=== PATIENT | male | born 1950 | race Caucasian/White ===

== ENCOUNTER 2016-05-25 00:21 | Emergency (ER) | payer OTHER ==
[2016-05-25 01:40] LABS: UA SPECIFIC GRAVITY 1.025 (1.005-1.035); microscopic required? YES; urine erythrocyte 3+ (NEGATIVE)
[2016-05-25 02:28] VITALS: BP 159/97
== END 2016-05-25 02:28 | disposition home or self-care (01) ==
LOC: ED 00:21
PROVIDERS: Emergency Medicine
DX: N39.0 Urinary tract infection, site not specified (principal); N40.1 Benign prostatic hyperplasia with lower urinary tract symptoms; R33.8 Other retention of urine

== ENCOUNTER 2016-07-02 00:44 | Emergency (ER) | payer OTHER ==
[2016-07-02 03:41] VITALS: BP 130/89
== END 2016-07-02 03:41 | disposition home or self-care (01) ==
LOC: ED 00:44
DX: N40.1 Benign prostatic hyperplasia with lower urinary tract symptoms (principal); N39.0 Urinary tract infection, site not specified
CPT/HCPCS: 76770; Q0092

== ENCOUNTER 2016-07-10 00:56 | Emergency (ER) | payer OTHER ==
[2016-07-10 03:44] VITALS: BP 150/96
== END 2016-07-10 03:44 | disposition home or self-care (01) ==
LOC: ED 00:56
DX: Z46.6 Encounter for fitting and adjustment of urinary device (principal)

== ENCOUNTER 2016-07-14 14:37 | Emergency (ER) | payer OTHER ==
[2016-07-14 15:00] VITALS: BP 165/152
== END 2016-07-14 16:01 | disposition home or self-care (01) ==
LOC: ED 14:37
DX: Z46.6 Encounter for fitting and adjustment of urinary device (principal)

== ENCOUNTER 2016-10-04 16:34 | Emergency (ER) | payer OTHER ==
[~2016-10-04] VITALS: Ht 180.3 cm; Wt 100.0 kg
[2016-10-04 18:35] LABS: BASOPHIL % 0.5 % (0-2); PLATELET COUNT 289 x10^3mcL (130-400); RED CELL DISTRIBUTION WIDTH 13.9 % (11.5-14.5)
[2016-10-04 18:39] LABS: CALCIUM 9.5 mg/dL (8.5-10.1); CARBON DIOXIDE 22.9 mmol/L (21-32); CHLORIDE SERUM 103 mmol/L (98-107); CREATININE SERUM 1.1 mg/dL (0.7-1.3); GFR1 > 60 mL/min; GLUCOSE SERUM 101 mg/dL (74-106); POTASSIUM SERUM 3.8 mmol/L (3.5-5.1); SODIUM SERUM 136 mmol/L (136-145)
[2016-10-04 19:53] LABS: microscopic required? YES; urine erythrocyte 3+ (NEGATIVE)
[2016-10-04 20:15] VITALS: BP 156/101
== END 2016-10-04 20:15 | disposition home or self-care (01) ==
LOC: ED 16:34
PROVIDERS: Emergency Medicine
DX: N40.1 Benign prostatic hyperplasia with lower urinary tract symptoms (principal); R33.8 Other retention of urine; R03.0 Elevated blood-pressure reading, without diagnosis of hypertension
CPT/HCPCS: 36415; 76770; Q0092

== ENCOUNTER 2017-01-08 10:35 | Inpatient (IN) | payer OTHER ==
[~2017-01-08] VITALS: Ht 182.9 cm; Wt 93.9 kg
[2017-01-08 12:25] LABS: BASOPHIL % 0.6 % (0-2); PLATELET COUNT 321 x10^3mcL (130-400); RED CELL DISTRIBUTION WIDTH 13.7 % (11.5-14.5)
[2017-01-08 12:30] LABS: CALCIUM 9.4 mg/dL (8.5-10.1); CARBON DIOXIDE 26.9 mmol/L (21-32); CHLORIDE SERUM 101 mmol/L (98-107); CREATININE SERUM 0.9 mg/dL (0.7-1.3); GFR1 > 60 mL/min; GLUCOSE SERUM 92 mg/dL (74-106); POTASSIUM SERUM 3.5 mmol/L (3.5-5.1); SODIUM SERUM 137 mmol/L (136-145)
[2017-01-08 12:34] LABS: ALBUMIN 3.6 g/dL (3.4-5.0); ALKALINE PHOSPHATASE 100 U/L (46-116); ALT/SGPT 20 U/L (16-63); AMYLASE 28 U/L (25-115); AST/SGOT 16 U/L (15-37); BILIRUBIN TOTAL 0.53 mg/dL (0.20-1.00); LIPASE 162 IU/L (73-393)
[2017-01-08 12:37] LABS: TOTAL PROTEIN, SERUM 8.4 g/dL (6.4-8.2)
[2017-01-08 14:23] LABS: PHOSPHOROUS 2.4 mg/dL (2.5-4.9)
[2017-01-08 14:25] LABS: CHOLESTEROL/HDL RATIO 3.9
[2017-01-08 14:30] LABS: T3 TOTAL 1.14 ng/mL
[2017-01-08 14:32] LABS: FREE T4 1.3 ng/dL (0.76-1.46); FREE THYROXINE INDEX 3.7 ug/dL (1.4-4.5); T4(THYROXINE) 10.9 ug/dL (4.7-13.3)
[2017-01-08 14:34] VITALS: BP 171/109
[2017-01-08 14:36] LABS: UA SPECIFIC GRAVITY <=1.005 (1.005-1.035); microscopic required? YES; urine erythrocyte NEGATIVE (NEGATIVE)
[2017-01-08 14:59] LABS: AMPHETAMINE QUAL UR NONE DETECTED (NEG <=1000)
[2017-01-08 17:27] VITALS: BP 171/107
[2017-01-08 20:31] VITALS: BP 134/68
[2017-01-09 05:51] VITALS: BP 125/74
[2017-01-09 06:09] LABS: BASOPHIL % 0.6 % (0-2); PLATELET COUNT 292 x10^3mcL (130-400); RED CELL DISTRIBUTION WIDTH 14.1 % (11.5-14.5)
[2017-01-09 06:12] LABS: CALCIUM 8.4 mg/dL (8.5-10.1); CARBON DIOXIDE 24.5 mmol/L (21-32); CHLORIDE SERUM 106 mmol/L (98-107); CREATININE SERUM 0.9 mg/dL (0.7-1.3); GFR1 > 60 mL/min; GLUCOSE SERUM 83 mg/dL (74-106); MAGNESIUM 2.2 mg/dL (1.8-2.4); PHOSPHOROUS 3.5 mg/dL (2.5-4.9); POTASSIUM SERUM 3.5 mmol/L (3.5-5.1); SODIUM SERUM 138 mmol/L (136-145)
[2017-01-09 09:22] VITALS: BP 161/96
[2017-01-09 12:22] VITALS: BP 147/94
[2017-01-09 16:14] VITALS: BP 154/93
== END 2017-01-09 16:22 | disposition left against medical advice (07) | DRG 693 ==
LOC: ED 10:35 → DU 13:11
PROVIDERS: Specialist; ADMIT Family Medicine
DX: N21.0 Calculus in bladder (principal); N17.0 Acute kidney failure with tubular necrosis; N13.2 Hydronephrosis with renal and ureteral calculous obstruction; N39.0 Urinary tract infection, site not specified; I16.0 Hypertensive urgency; I10 Essential (primary) hypertension; E83.39 Other disorders of phosphorus metabolism; N40.0 Benign prostatic hyperplasia without lower urinary tract symptoms; E78.2 Mixed hyperlipidemia; Z91.19 Patient's noncompliance with other medical treatment and regimen; Z68.28 Body mass index [BMI] 28.0-28.9, adult
CPT/HCPCS: 76770; 83880; 84439; J0696; J1885; J2405; J3010; J7030; Q0092

== ENCOUNTER 2017-03-22 09:35 | Emergency (ER) | payer OTHER ==
[~2017-03-22] VITALS: Ht 182.9 cm; Wt 92.1 kg
[2017-03-22 12:00] VITALS: BP 142/88
== END 2017-03-22 12:00 | disposition home or self-care (01) ==
LOC: ED 09:35
DX: N39.0 Urinary tract infection, site not specified (principal); N40.0 Benign prostatic hyperplasia without lower urinary tract symptoms

== ENCOUNTER 2017-06-12 18:40 | Emergency (ER) | payer OTHER ==
[~2017-06-12] VITALS: Ht 170.2 cm; Wt 98.4 kg
[2017-06-12 19:16] VITALS: Ht 170.2 cm; Wt 98.4 kg
[2017-06-12 20:19] LABS: PLATELET COUNT 252 x10^3mcL (130-400); RED CELL DISTRIBUTION WIDTH 13.9 % (11.5-14.5)
[2017-06-12 20:39] LABS: CALCIUM 8.4 mg/dL (8.5-10.1); CHLORIDE SERUM 105 mmol/L (98-107); CREATININE SERUM 0.9 mg/dL (0.7-1.3); GFR1 > 60 mL/min; GLUCOSE SERUM 87 mg/dL (74-106); POTASSIUM SERUM 3.5 mmol/L (3.5-5.1); SODIUM SERUM 139 mmol/L (136-145)
[2017-06-12 20:44] LABS: ALBUMIN 3.5 g/dL (3.4-5.0); ALKALINE PHOSPHATASE 116 U/L (46-116); ALT/SGPT 16 U/L (16-63); AST/SGOT 15 U/L (15-37); BILIRUBIN TOTAL 0.4 mg/dL (0.20-1.00); TOTAL PROTEIN, SERUM 7.3 g/dL (6.4-8.2)
[2017-06-12 22:21] LABS: microscopic required? YES; urine erythrocyte 3+ (NEGATIVE)
[2017-06-12 23:03] VITALS: BP 130/79
== END 2017-06-12 23:03 | disposition home or self-care (01) ==
LOC: ED 18:40
PROVIDERS: Emergency Medicine
DX: N39.0 Urinary tract infection, site not specified (principal)
CPT/HCPCS: 36415

== ENCOUNTER 2017-09-04 16:44 | Emergency (ER) | payer OTHER ==
[~2017-09-04] VITALS: Ht 180.3 cm; Wt 97.1 kg
[2017-09-04 16:51] VITALS: Ht 180.3 cm; Wt 97.1 kg
[2017-09-04 20:11] LABS: microscopic required? YES; urine erythrocyte 3+ (NEGATIVE)
[2017-09-04 20:51] VITALS: BP 145/95
== END 2017-09-04 20:51 | disposition home or self-care (01) ==
LOC: ED 16:44
PROVIDERS: Emergency Medicine Emergency Medical Services
DX: T83.011A Breakdown (mechanical) of indwelling urethral catheter, initial encounter (principal); N40.0 Benign prostatic hyperplasia without lower urinary tract symptoms

== ENCOUNTER 2017-12-22 12:04 | Emergency (ER) | payer OTHER ==
[~2017-12-22] VITALS: Ht 182.9 cm; Wt 99.0 kg
[2017-12-22 12:13] VITALS: Ht 182.9 cm; Wt 99.0 kg
[2017-12-22 13:17] LABS: microscopic required? YES; urine erythrocyte TRACE (NEGATIVE)
[2017-12-22 14:14] VITALS: BP 155/104
== END 2017-12-22 14:14 | disposition home or self-care (01) ==
LOC: ED 12:04
PROVIDERS: Emergency Medicine
DX: N40.1 Benign prostatic hyperplasia with lower urinary tract symptoms (principal)

== ENCOUNTER 2018-05-08 02:31 | Emergency (ER) | payer OTHER ==
[~2018-05-08] VITALS: Ht 182.9 cm; Wt 91.6 kg
[2018-05-08 02:41] VITALS: Ht 182.9 cm; Wt 91.6 kg
[2018-05-08 05:18] VITALS: BP 146/97
== END 2018-05-08 05:18 | disposition home or self-care (01) ==
LOC: ED 02:31
DX: N39.0 Urinary tract infection, site not specified (principal); N48.1 Balanitis; R33.9 Retention of urine, unspecified
CPT/HCPCS: 82962

== ENCOUNTER 2018-05-13 03:22 | Emergency (ER) | payer OTHER ==
[~2018-05-13] VITALS: Ht 182.9 cm; Wt 90.3 kg
[2018-05-13 03:28] VITALS: Ht 182.9 cm; Wt 90.3 kg
[2018-05-13 05:15] VITALS: BP 150/84
== END 2018-05-13 05:15 | disposition home or self-care (01) ==
LOC: ED 03:22
DX: R33.9 Retention of urine, unspecified (principal)

== ENCOUNTER 2018-08-29 23:37 | Emergency (ER) | payer OTHER ==
[~2018-08-29] VITALS: Ht 172.7 cm; Wt 96.2 kg
[2018-08-29 23:39] VITALS: Ht 172.7 cm; Wt 96.2 kg
[2018-08-30 02:57] VITALS: BP 189/115
== END 2018-08-30 03:25 | disposition home or self-care (01) ==
LOC: ED 23:37
DX: T83.018A Breakdown (mechanical) of other urinary catheter, initial encounter (principal); N40.1 Benign prostatic hyperplasia with lower urinary tract symptoms

== ENCOUNTER 2018-09-19 21:50 | Emergency (ER) | payer OTHER ==
[~2018-09-19] VITALS: Ht 182.9 cm; Wt 97.1 kg
[2018-09-19 21:56] VITALS: Ht 182.9 cm; Wt 97.1 kg
[2018-09-20 01:34] VITALS: BP 163/89
== END 2018-09-20 01:34 | disposition home or self-care (01) ==
LOC: ED 21:50
DX: T83.018A Breakdown (mechanical) of other urinary catheter, initial encounter (principal)

== ENCOUNTER 2018-09-22 03:13 | Emergency (ER) | payer OTHER ==
[~2018-09-22] VITALS: Ht 182.9 cm; Wt 96.8 kg
[2018-09-22 03:24] VITALS: Ht 182.9 cm; Wt 96.8 kg
[2018-09-22 06:16] VITALS: BP 130/89
== END 2018-09-22 06:16 | disposition home or self-care (01) ==
LOC: ED 03:13
DX: T83.018A Breakdown (mechanical) of other urinary catheter, initial encounter (principal)

== ENCOUNTER 2018-11-14 19:07 | Emergency (ER) | payer OTHER ==
[~2018-11-14] VITALS: Ht 180.3 cm; Wt 95.7 kg
[2018-11-14 19:23] VITALS: Ht 180.3 cm; Wt 95.7 kg
[2018-11-14 20:48] VITALS: BP 142/92
== END 2018-11-14 20:48 | disposition home or self-care (01) ==
LOC: ED 19:07
DX: T83.9XXA Unspecified complication of genitourinary prosthetic device, implant and graft, initial encounter (principal); N39.0 Urinary tract infection, site not specified

== ENCOUNTER 2019-04-06 06:27 | Emergency (ER) | payer OTHER ==
[~2019-04-06] VITALS: Ht 182.9 cm; Wt 95.3 kg
[2019-04-06 06:39] VITALS: Ht 182.9 cm; Wt 95.3 kg
[2019-04-06 07:32] VITALS: BP 170/90
[2019-04-06 08:16] LABS: UA SPECIFIC GRAVITY 1.015 (1.005-1.035); microscopic required? YES; urine erythrocyte 3+ (NEGATIVE)
== END 2019-04-06 07:32 | disposition home or self-care (01) ==
LOC: ED 06:27
PROVIDERS: Specialist
DX: T83.098A Other mechanical complication of other urinary catheter, initial encounter (principal)

== ENCOUNTER 2019-06-17 16:31 | Emergency (ER) | payer OTHER ==
[~2019-06-17] VITALS: Ht 182.9 cm; Wt 94.8 kg
[2019-06-17 16:36] VITALS: Ht 182.9 cm; Wt 94.8 kg
[2019-06-17 18:38] LABS: UA SPECIFIC GRAVITY <=1.005 (1.005-1.035); microscopic required? YES; urine erythrocyte 3+ (NEGATIVE)
[2019-06-17 19:24] VITALS: BP 165/106
== END 2019-06-17 19:24 | disposition home or self-care (01) ==
LOC: ED 16:31
PROVIDERS: Emergency Medicine
DX: T83.018A Breakdown (mechanical) of other urinary catheter, initial encounter (principal); N39.0 Urinary tract infection, site not specified; I10 Essential (primary) hypertension

== ENCOUNTER 2019-08-08 00:52 | Emergency (ER) | payer OTHER ==
[~2019-08-08] VITALS: Ht 182.9 cm; Wt 93.4 kg
[2019-08-08 01:01] VITALS: Ht 182.9 cm; Wt 93.4 kg
[2019-08-08 07:05] VITALS: BP 143/101
== END 2019-08-08 07:05 | disposition home or self-care (01) ==
LOC: ED 00:52
DX: N40.1 Benign prostatic hyperplasia with lower urinary tract symptoms (principal); Z46.6 Encounter for fitting and adjustment of urinary device
CPT/HCPCS: J0696

== ENCOUNTER 2019-09-25 17:30 | Emergency (ER) | payer OTHER ==
[~2019-09-25] VITALS: Ht 182.9 cm; Wt 93.4 kg
[2019-09-25 17:37] VITALS: Ht 182.9 cm; Wt 93.4 kg
[2019-09-25 20:07] LABS: BASOPHIL % 0.4 % (0-2); PLATELET COUNT 248 x10^3mcL (130-400); RED CELL DISTRIBUTION WIDTH 13.9 % (11.5-14.5)
[2019-09-25 20:16] LABS: CALCIUM 8.7 mg/dL (8.5-10.1); CARBON DIOXIDE 29.4 mmol/L (21-32); CHLORIDE SERUM 104 mmol/L (98-107); CREATININE SERUM 0.8 mg/dL (0.7-1.3); GFR1 > 60 mL/min; GLUCOSE SERUM 98 mg/dL (74-106); POTASSIUM SERUM 3.8 mmol/L (3.5-5.1); SODIUM SERUM 139 mmol/L (136-145)
[2019-09-25 20:22] LABS: ALBUMIN 3.4 g/dL (3.4-5.0); ALKALINE PHOSPHATASE 98 U/L (46-116); ALT/SGPT 15 U/L (16-63); AST/SGOT 15 U/L (15-37); BILIRUBIN TOTAL 0.3 mg/dL (0.20-1.00); TOTAL PROTEIN, SERUM 7.1 g/dL (6.4-8.2)
[2019-09-25 21:05] VITALS: BP 161/103
== END 2019-09-25 21:05 | disposition home or self-care (01) ==
LOC: ED 17:30
PROVIDERS: Emergency Medicine
DX: T83.018A Breakdown (mechanical) of other urinary catheter, initial encounter (principal); N39.0 Urinary tract infection, site not specified; I10 Essential (primary) hypertension

== ENCOUNTER 2019-12-11 21:45 | Emergency (ER) | payer OTHER ==
[~2019-12-11] VITALS: Ht 182.9 cm; Wt 93.7 kg
[2019-12-11 21:51] VITALS: Ht 182.9 cm; Wt 93.7 kg
[2019-12-12 00:01] VITALS: BP 152/92
== END 2019-12-12 00:01 | disposition home or self-care (01) ==
LOC: ED 21:45
DX: R33.9 Retention of urine, unspecified (principal); N40.0 Benign prostatic hyperplasia without lower urinary tract symptoms

== ENCOUNTER 2020-01-25 08:47 | Emergency (ER) | payer OTHER ==
[~2020-01-25] VITALS: Ht 182.9 cm; Wt 90.7 kg
[2020-01-25 09:05] VITALS: Ht 182.9 cm; Wt 90.7 kg
[2020-01-25 13:10] VITALS: BP 156/76
== END 2020-01-25 13:11 | disposition home or self-care (01) ==
LOC: ED 08:47
DX: T83.098A Other mechanical complication of other urinary catheter, initial encounter (principal); N40.0 Benign prostatic hyperplasia without lower urinary tract symptoms

== ENCOUNTER 2020-02-20 21:27 | Emergency (ER) | payer OTHER ==
[~2020-02-20] VITALS: Ht 182.9 cm; Wt 93.0 kg
[2020-02-20 21:51] VITALS: BP 223/132
== END 2020-02-20 23:04 | disposition home or self-care (01) ==
LOC: ED 21:27
DX: T83.098A Other mechanical complication of other urinary catheter, initial encounter (principal); I10 Essential (primary) hypertension

== ENCOUNTER 2020-03-13 12:46 | Emergency (ER) | payer OTHER ==
[~2020-03-13] VITALS: Ht 182.9 cm; Wt 93.4 kg
[2020-03-13 13:22] VITALS: Ht 182.9 cm; Wt 93.4 kg
[2020-03-13 16:02] VITALS: BP 184/93
== END 2020-03-13 16:02 | disposition home or self-care (01) ==
LOC: ED 12:46
DX: T83.098A Other mechanical complication of other urinary catheter, initial encounter (principal); N40.0 Benign prostatic hyperplasia without lower urinary tract symptoms; Z46.6 Encounter for fitting and adjustment of urinary device

== ENCOUNTER 2020-04-01 04:33 | Emergency (ER) | payer OTHER ==
[~2020-04-01] VITALS: Ht 182.9 cm; Wt 90.3 kg
[2020-04-01 04:43] VITALS: Ht 182.9 cm; Wt 90.3 kg
[2020-04-01 05:26] VITALS: BP 166/104
== END 2020-04-01 05:25 | disposition home or self-care (01) ==
LOC: ED 04:33
DX: T83.091A Other mechanical complication of indwelling urethral catheter, initial encounter (principal); I10 Essential (primary) hypertension; Y92.89 Other specified places as the place of occurrence of the external cause

== ENCOUNTER 2020-04-17 18:56 | Emergency (ER) | payer OTHER ==
[~2020-04-17] VITALS: Ht 182.9 cm; Wt 89.5 kg
[2020-04-17 19:38] VITALS: Ht 182.9 cm; Wt 89.5 kg
[2020-04-17] MEDS ORDERED: KEF500 PO (21:39)
[2020-04-17 21:46] VITALS: BP 156/97
== END 2020-04-17 21:46 | disposition home or self-care (01) ==
LOC: ED 18:56
DX: N39.0 Urinary tract infection, site not specified (principal); R33.9 Retention of urine, unspecified; N40.0 Benign prostatic hyperplasia without lower urinary tract symptoms